=== PATIENT | female | born 1975 | race Caucasian/White ===

== ENCOUNTER 2016-03-22 19:37 | Emergency (ER) | payer BC ==
[2016-03-22] MEDS ORDERED: TDaP 0.5 ML VIAL IM.VACC ONE (20:36)
== END 2016-03-22 21:53 | disposition home or self-care (01) ==
LOC: ER 19:37
DX: S91.332A Puncture wound without foreign body, left foot, initial encounter (principal); W45.0XXA Nail entering through skin, initial encounter; W22.8XXA Striking against or struck by other objects, initial encounter; Y93.E9 Activity, other interior property and clothing maintenance; Z23 Encounter for immunization
CPT/HCPCS: 90471